=== PATIENT | male | born 1980 ===

== ENCOUNTER 2022-07-11 16:24 | Emergency (ER) | payer SELFPAY ==
[2022-07-11] MEDS ORDERED: Sodium Chloride 0.9% 1,000 ML IV ONE (17:15)
[2022-07-11] MEDS ORDERED: Iopamidol 612 MG/ML 100 ML Bottle IV ONE (19:46)
[2022-07-11] MEDS ORDERED: Ciprofloxacin 500 MG Tab PO ONE (20:55)
[2022-08-04 10:56] LABS: ANION GAP 12.7 mEq/L (7-13); CHLORIDE,CL 100 mmol/L (98-107); ESTIMATED GFR 80 mL/min (>=60); SODIUM,NA 139 mmol/L (136-145)
== END 2022-07-11 21:22 | disposition home or self-care (01) ==
LOC: DL.ED 16:24
DX: K52.9 Noninfective gastroenteritis and colitis, unspecified (principal); K51.20 Ulcerative (chronic) proctitis without complications
CPT/HCPCS: 36415; 74177; 80053; 80307; 81003; 82150; 83605; 83690; 85025; 85651; 96360; 99284-25; A9270-GY; J7030; Q9967